=== PATIENT | male | born 1980 | race African-American/Black ===

== ENCOUNTER 2024-02-09 12:17 | Emergency (ER) | payer OTHER ==
[2024-02-09] MEDS: Diphtheria,Pertussis(Acell),Tetanus Vaccine 0.5 ML Syringe IM ONE (13:08)
[2024-02-09] MEDS: Lidocaine 1% 5 ML VIAL INJECT STA (13:08)
[2024-02-09] MEDS: ceFAZolin 1 GM Vial IM STA (14:58)
== END 2024-02-09 15:08 | disposition home or self-care (01) ==
LOC: MW.ED 12:17
DX: S62.661B Nondisplaced fracture of distal phalanx of left index finger, initial encounter for open fracture (principal); S67.191A Crushing injury of left index finger, initial encounter; Z75.8 Other problems related to medical facilities and other health care; W23.0XXA Caught, crushed, jammed, or pinched between moving objects, initial encounter
CPT/HCPCS: 12032; 73130; 90471; 90715; 96372; 99283; J0690; 12002; J3490